=== PATIENT | male | born 1945 | race Caucasian/White ===

== ENCOUNTER 2021-11-18 10:52 | Emergency (ER) | payer MEDICARE ==
[~2021-11-18] VITALS: Ht 182 cm; Wt 81.0 kg
[~2021-11-18 10:52] MED LIST: 2 MEDS FOR BP; ASP81TEC; HYDR-34 PO; NIAC1000; VALA500T4 PO
[2021-11-18 11:37] LABS: BASOPHILS % (AUTO) 0 % (0-10); EOSINOPHILS # (AUTO) 0.3 10^3/uL (0.0-0.3); EOSINOPHILS % (AUTO) 4 % (0-10); HEMATOCRIT 39 % (40-54); HEMOGLOBIN 13.3 g/dL (13.3-17.7); LYMPHOCYTES # (AUTO) 2.2 10^3/uL (1.0-4.0); LYMPHOCYTES % (AUTO) 33 % (12-44); MEAN CORPUSCULAR HEMOGLOBIN 32 pg (25-34); MEAN CORPUSCULAR HGB CONC 34 g/dL (32-36); MEAN CORPUSCULAR VOLUME 94 fL (80-99); MONOCYTES # (AUTO) 0.6 10^3/uL (0.0-1.0); MONOCYTES % (AUTO) 9 % (0-12); NEUTROPHILS # (AUTO) 3.6 10^3/uL (1.8-7.8); NEUTROPHILS % (AUTO) 53 % (42-75); PLATELET COUNT 235 10^3/uL (130-400); WHITE BLOOD COUNT 6.8 10^3/uL (4.3-11.0)
--- NOTE | 2021-11-18 11:38 | ED Neurological Problem ---
General Stated Complaint: BLOATING/NOT TAKING RX/CONFUSION Source: patient, family Exam Limitations: clinical condition History of Present Illness Date Seen by Provider: Nov 18, 2021 Time Seen by Provider: 11:33 Initial Comments Patient is a 76-year-old male who presents ED with brother for change in mental status, bloating not taking current medication. Patient has a history of moderate dementia, hypertension, CHF, chronic kidney disease, prostate cancer, gastritis who presents for change in behavior. Patient recently moved to [place] from [place]. Patient LEO who is his daughter has been taking care of patient for the past 2 years. Recently passing of his resulted of him moving to family here in [place]. He is not established with care here. According to daughter patient has been more confused over the past week. She believes this is secondary to the loss of his and not eating. Patient states he has been eating but tends to bloat but does take medication for this. He has no current abdominal pain, chest pain. Denies of any cough, fever, vomiting, diarrhea. Patient is urine incontinent. Denies of any change in urination. According to his daughter patient had a work-up by his urologist last week and was released. Patient does have a history of seizures currently on Keppra. No seizure-like activity this past week. Patient typically has a seizure when he does not eat or increased stress. She is wanting patient to establish care here. If lab work and general work-up is unremarkable to be discharged and to establish care. Recommends no assisted living at this time. Recommends returning back to family if unremarkable. Patient ambulates with a cane patient denies headache, unilateral muscle weakness or sensory changes, facial droop, Neck pain. Allergies and Home Medications Allergies Coded Allergies: No Known Drug Allergies (Verified , 05/30/08) Patient Home Medication List Home Medication List Reviewed: Yes Aspirin (Aspirin Ec 81 Mg) 81 Mg Tabec, (Reported) Entered as Reported by: VERO PHILIPPE on 02/23/10 0850 Hydrocodone Bit/Acetaminophen (Lortab 7.5 Mg Tablet) 1 Ea Tablet, 1 EA PO Q 4 - 6 HR PRN Prescribed by: BABAK JOHN MD on 02/23/10 0915 Niacin (Niaspan) 1,000 Mg Tablet.sa, (Reported) Entered as Reported by: VERO PHILIPPE on 02/23/10 0850 Valacyclovir Hcl (Valtrex) 500 Mg Tablet, 2 TAB PO TID Prescribed by: BABAK JOHN MD on 02/23/10 0915 [2 Meds For Bp] , (Reported) Entered as Reported by: VERO PHILIPPE on 02/23/10 0850 Review of Systems Review of Systems Constitutional: No chills, No diaphoresis, No fever, No malaise Eyes: Denies Blindness, Denies Blurred Vision, Denies Drainage, Denies Inflammation Gastrointestinal: No RUQ; abdominal pain; No diarrhea, No vomiting Genitourinary: No decreased output, No discharge, No hematuria Musculoskeletal: No back pain, No joint pain Skin: No change in color, No change in hair/nails Psychiatric/Neurological: Cognitive Dysfunction; Denies Headache, Denies Num bness All Other Systems Reviewed Negative Unless Noted: Yes Physical Exam Vital Signs Vital Signs - First Documented 11/18/21 11:05 Temp 36.4 Pulse 60 Resp 20 B/P (MAP) 132/69 (90) Pulse Ox 97 O2 Delivery Room Air Capillary Refill : Height, Weight, BMI Height: '" Weight: lbs. oz. kg; BMI Method: General Appearance: WD/WN, no apparent distress HEENT: PERRL/EOMI, normal ENT inspection, TMs normal, pharynx normal Neck: non-tender, full range of motion, supple Respiratory: chest non-tender, lungs clear, normal breath sounds, no respirat ory distress, no accessory muscle use Cardiovascular: regular rate, rhythm, no edema, no gallop, no JVD Gastrointestinal: normal bowel sounds, non tender, soft, no organomegaly, no pulsatile mass Back: normal inspection Extremities: normal range of motion, non-tender, normal inspection Neurologic/Psychiatric: other (Disoriented x2) Skin: normal color, warm/dry Progress/Results/Core Measures Results/Orders Lab Results Laboratory Tests Test 11/18/21 11:22 11/18/21 12:42 Range/Units White Blood Count 6.8 4.3-11.0 10^3/uL Red Blood Count 4.17 L 4.30-5.52 10^6/uL Hemoglobin 13.3 13.3-17.7 g/dL Hematocrit 39 L 40-54 % Mean Corpuscular Volume 94 80-99 fL Mean Corpuscular Hemoglobin 32 25-34 pg Mean Corpuscular Hemoglobin Concent 34 32-36 g/dL Red Cell Distribution Width 14.2 10.0-14.5 % Platelet Count 235 130-400 10^3/uL Mean Platelet Volume 11.0 9.0-12.2 fL Immature Granulocyte % (Auto) 0 % Neutrophils (%) (Auto) 53 42-75 % Lymphocytes (%) (Auto) 33 12-44 % Monocytes (%) (Auto) 9 0-12 % Eosinophils (%) (Auto) 4 0-10 % Basophils (%) (Auto) 0 0-10 % Neutrophils # (Auto) 3.6 1.8-7.8 10^3/uL Lymphocytes # (Auto) 2.2 1.0-4.0 10^3/uL Monocytes # (Auto) 0.6 0.0-1.0 10^3/uL Eosinophils # (Auto) 0.3 0.0-0.3 10^3/uL Basophils # (Auto) 0.0 0.0-0.1 10^3/uL Immature Granulocyte # (Auto) 0.0 0.0-0.1 10^3/uL Sodium Level 139 135-145 MMOL/L Potassium Level 3.7 3.6-5.0 MMOL/L Chloride Level 106 98-107 MMOL/L Carbon Dioxide Level 23 21-32 MMOL/L Anion Gap 10 5-14 MMOL/L Blood Urea Nitrogen 19 H 7-18 MG/DL Creatinine 1.11 0.60-1.30 MG/DL Estimat Glomerular Filtration Rate 68 BUN/Creatinine Ratio 17 Glucose Level 106 H 70-105 MG/DL Calcium Level 9.6 8.5-10.1 MG/DL Corrected Calcium 9.4 8.5-10.1 MG/DL Magnesium Level 2.0 1.6-2.4 MG/DL Total Bilirubin 1.2 H 0.1-1.0 MG/DL Aspartate Amino Transf (AST/SGOT) 18 5-34 U/L Alanine Aminotransferase (ALT/SGPT) 11 0-55 U/L Alkaline Phosphatase 84 40-136 U/L C-Reactive Protein High Sensitivity 0.17 0.00-0.50 MG/DL Total Protein 7.3 6.4-8.2 GM/DL Albumin 4.3 3.2-4.5 GM/DL Lipase 28 8-78 U/L Urine Color YELLOW Urine Clarity CLEAR Urine pH 7.0 5-9 Urine Specific [place] 1.010 L 1.016-1.022 Urine Protein NEGATIVE NEGATIVE Urine Glucose (UA) NEGATIVE NEGATIVE Urine Ketones NEGATIVE NEGATIVE Urine Nitrite NEGATIVE NEGATIVE Urine Bilirubin NEGATIVE NEGATIVE Urine Urobilinogen 4.0 < = 1.0 MG/DL Urine Leukocyte Esterase NEGATIVE NEGATIVE Urine RBC (Auto) NEGATIVE NEGATIVE Urine RBC NONE /HPF Urine WBC RARE /HPF Urine Squamous Epithelial Cells RARE /HPF Urine Crystals NONE /LPF Urine Bacteria NEGATIVE /HPF Urine Casts NONE /LPF Urine Mucus NEGATIVE /LPF Urine Culture Indicated NO My Orders Orders - NATE KATZ Cbc With Automated Diff (11/18/21 11:30) Comprehensive Metabolic Panel (11/18/21 11:30) Lipase (11/18/21 11:30) Magnesium (11/18/21 11:30) Ekg Tracing (11/18/21 11:30) Chest Pa/Lat (2 View) (11/18/21 11:30) Ua Culture If Indicated (11/18/21 11:30) Ct Head Wo (11/18/21 11:30) Hs C Reactive Protein (11/18/21 11:30) Vital Signs/I&O 11/18/21 11/18/21 11:05 13:20 Temp 36.4 36.4 Pulse 60 58 Resp 20 18 B/P (MAP) 132/69 (90) 136/75 Pulse Ox 97 97 O2 Delivery Room Air Room Air Departure Communication (Admissions) Patient with a history of dementia, chronic kidney disease, CHF, hypertension, prostate cancer who presents ED with brother for multiple complaints. Patient recently moved to [place] to live with brother. Patient lived in [place] until the past week. Patient 1 week ago. Since the he has had increased confusion. Contacted ALLEGRA Kong [phone] who manage patient care for the past 2 years. Patient had a full work-up last week that was unremarkable. She denies of any current complaints or worsening behaviors or conditions. Patient mention that his 's sister is stealing from him. According to sister this is not true and likely referring to her. Patient is alert and oriented x2. Does appear mild confused however this is at his normal baseline likely some subtle changes likely from the increased stress and recent move according to daughter. DPALLEGRA does not want inpatient care at this time. Needs to establish with a primary care physician in the [place] area. This was provided at discharge. Brother currently being managed by a primary care physician at [facility] who he will follow up with. Patient lab work was otherwise unremarkable. Urinalysis negative for infection. CT scan head unremarkable. Lab work was otherwise unremarkable. Patient with a steady gait but does use a cane. No increased irritability. Patient is cooperative. Discussed results with dilia Kong daughter who agrees with this plan of action. They will establish care. If any acute changes to return back to ED. Brother at bedside agrees with this plan of action. Impression Primary Impression: Dementia Disposition: 01 HOME, SELF-CARE Condition: Stable Departure-Patient Inst. Decision time for Depature: 13:09 Referrals: RAYMOND ARMIJO MD NO,LOCAL PHYSICIAN (PCP) Primary Care Physician Patient Instructions: Dementia ED NATE KATZ Nov 18, 2021 11:38
[2021-11-18 11:42] LABS: ALBUMIN 4.3 GM/DL (3.2-4.5); POTASSIUM 3.7 MMOL/L (3.6-5.0)
[2021-11-18 11:43] LABS: CALCIUM 9.6 MG/DL (8.5-10.1)
[2021-11-18 11:44] LABS: TOTAL PROTEIN 7.3 GM/DL (6.4-8.2)
[2021-11-18 11:46] LABS: BILIRUBIN,TOTAL 1.2 MG/DL (0.1-1.0)
[2021-11-18 11:48] LABS: CREATININE SERUM 1.11 MG/DL (0.60-1.30)
--- NOTE | 2021-11-18 12:11 | Diagnostic Imaging Report ---
INDICATION: Altered mental status. TECHNIQUE: Multiple contiguous axial images were obtained through the brain without the use of intravenous contrast. Auto Exposure Controls were utilized during the CT exam to meet ALARA standards for radiation dose reduction. COMPARISON: There is no prior study for comparison. FINDINGS: There are diffuse atrophic changes. There were no extra-axial fluid collections. No intracranial hemorrhage. No intracranial mass or mass effect. No midline shift. There are moderate chronic ischemic changes in the deep white matter. There is mild ventricular prominence which is likely secondary to volume loss. There is no acute-appearing intracranial finding. Calvarial windows are unremarkable. Visualized portions of the sinuses and mastoid air cells are clear. IMPRESSION: Chronic changes as described above with no acute intracranial abnormality. Dictated by: Dictated on workstation # [id number]
--- NOTE | 2021-11-18 12:15 | Diagnostic Imaging Report ---
CHEST PA/LAT (2 VIEW) Indication: Cough Comparison: None available Findings: No pulmonary mass or consolidation. No pleural effusion or pneumothorax. Normal heart size and mediastinal contours. Impression: No acute cardiopulmonary process. Dictated by: Dictated on workstation # [id number]
[2021-11-18 12:50] LABS: BILIRUBIN,URINE NEGATIVE (NEGATIVE); CLARITY,URINE CLEAR; COLOR,URINE YELLOW; GLUCOSE, URINE (UA) NEGATIVE (NEGATIVE); KETONES,URINE NEGATIVE (NEGATIVE); LEUKOCYTE ESTERASE ,URINE NEGATIVE (NEGATIVE); NITRITE,URINE NEGATIVE (NEGATIVE); PROTEIN,URINE NEGATIVE (NEGATIVE)
[2021-11-18 12:57] LABS: BACTERIA,URINE NEGATIVE /HPF; SQUAMOUS EPITHELIAL CELL,UR RARE /HPF; WBC,URINE RARE /HPF
[2021-11-18 13:20] VITALS: BP 136/75
== END 2021-11-18 13:30 | disposition home or self-care (01) ==
LOC: EDUNIT# 10:52 → ER 10:54
DX: F03.90 Unspecified dementia, unspecified severity, without behavioral disturbance, psychotic disturbance, mood disturbance, and anxiety (principal); Z79.82 Long term (current) use of aspirin
CPT/HCPCS: 36415; 70450; 71046; 80053; 81000; 83690; 83735; 85025; 86141; 93005

== ENCOUNTER 2022-01-28 10:54 | Emergency (ER) | payer MEDICARE | END 2022-01-28 12:03 | disposition left against medical advice (07) | LOC: EDUNIT# 10:54 → ER 10:55 | DX: R44.3 Hallucinations, unspecified (principal) ==

== ENCOUNTER → 2022-03-18 | Outpatient (CLI) | payer MEDICARE | LOC: CARD 14:30 | PROVIDERS: ATTEND Pediatrics | DX: I11.9 Hypertensive heart disease without heart failure (principal); I35.1 Nonrheumatic aortic (valve) insufficiency | CPT/HCPCS: 93306 ==

== ENCOUNTER → 2022-04-11 | Outpatient (CLI) | payer MEDICARE ==
[~2022-04-11] MED LIST changes: +HOLD METFORMIN - RECEIVED CONTRAST 20 ML VIAL IV SCH; +IOHEXOL 350 MG/ML 100 ML (OMNIPAQUE 350) VIAL IV ONE; +NS 100 ML (IVPB) BAG IV ONE
--- NOTE | 2022-04-11 14:12 | Diagnostic Imaging Report ---
PROCEDURE: CT abdomen with and without contrast. TECHNIQUE: Multiple contiguous axial CT images of the abdomen were obtained prior to and after intravenous administration of iodinated contrast. Auto Exposure Controls were utilized during the CT exam to meet ALARA standards for radiation dose reduction. INDICATION: Cancer of unknown type. Patient has had prior hernia surgery and urethra surgery. No prior studies are available for comparison. Imaging through lung bases does show some linear scarring or atelectasis in the right lower lobe. The liver contains tiny low-attenuation lesions, too small to characterize but likely cysts. Gallbladder is contracted. There is no biliary ductal dilatation. Pancreas and spleen are unremarkable. No adrenal mass is detected. The right kidney contains a low-attenuation lesion in the lower pole measuring 6.0 cm transverse dimension. No abnormal enhancement is identified and findings are consistent with a cyst. Left kidney is unremarkable. Aorta is calcified but nonaneurysmal. No central retroperitoneal or mesenteric lymphadenopathy is seen. Bowel loops are normal caliber. There is no ascites. Bony structures are nonacute. IMPRESSION: 6 cm right renal cyst. The study is otherwise unremarkable. Dictated by: Dictated on workstation # [id number]
== END ==
LOC: RAD 10:17
PROVIDERS: ATTEND Specialist
DX: N28.1 Cyst of kidney, acquired (principal); D41.01 Neoplasm of uncertain behavior of right kidney; R97.20 Elevated prostate specific antigen [PSA]
CPT/HCPCS: 36415; 74170; 82565; 84153

== ENCOUNTER → 2022-05-27 | Outpatient (CLI) | payer MEDICARE ==
[~2022-05-27] MED LIST changes: -HOLD METFORMIN - RECEIVED CONTRAST 20 ML VIAL IV SCH; -IOHEXOL 350 MG/ML 100 ML (OMNIPAQUE 350) VIAL IV ONE; -NS 100 ML (IVPB) BAG IV ONE
== END ==
LOC: LAB 15:29
PROVIDERS: ATTEND Specialist
DX: R97.20 Elevated prostate specific antigen [PSA] (principal)
CPT/HCPCS: 36415; 84153

== ENCOUNTER 2022-07-29 12:01 | Emergency (ER) | payer MEDICARE ==
[~2022-07-29] VITALS: Ht 177.8 cm; Wt 65.8 kg
[2022-07-29] MEDS ORDERED: WATER (STERILE) FOR INJECTION 10 ML ONE (12:07)
[2022-07-29] MEDS ORDERED: ZIPRASIDONE 20 MG INJ (GEODON) VIAL IM ONE ×2 (12:07→12:15)
[2022-07-29] MEDS ORDERED: WATER (STERILE) FOR INJ 10 ML BTL INJ SCH (12:15)
--- NOTE | 2022-07-29 12:20 | ED General ---
General Chief Complaint: Altered Mental Status Stated Complaint: ALTERED MENTAL STATUS Nursing Triage Note: PT TO ED BY EMS FROM [facility] WITH C/O INCRASED AGGRESSION. EMS REPORTS HAS BEEN VIOLENT TOWARDS STAFF THIS MORNING, HITTING AND THROWING THINGS. STAFF REPORTS PT IS SEXUALLY INNAPROPRIATE, BUT HAS NOT BEEN VIOLENT TOWARDS THEM UNTIL TODAY. Source of Information: Patient, EMS, [facility] Records Exam Limitations: No Limitations History of Present Illness Date Seen by Provider: Jul 29, 2022 Time Seen by Provider: 12:02 Initial Comments 77-year-old male with past medical history of dementia that is being taken care of at a [facility] coming in due to violent behavior and otherwise being inappropriate. He has not been violent until today, but typically is very verbal. He is sexually inappropriate almost at baseline. This morning he started hitting the staff and throwing things towards them. No fever, pain anywhere, and he is otherwise denying any symptoms at this time. Allergies and Home Medications Allergies Coded Allergies: No Known Drug Allergies (Verified , 05/30/08) Patient Home Medication List Home Medication List Reviewed: Yes Aspirin (Aspirin Ec 81 Mg) 81 Mg Tabec, (Reported) Entered as Reported by: VERO PHILIPPE on 02/23/10849 Hydrocodone Bit/Acetaminophen (Lortab 7.5 Mg Tablet) 1 Ea Tablet, 1 EA PO Q 4 - 6 HR PRN Prescribed by: BABAK JOHN MD on 02/23/10914 Niacin (Niaspan) 1,000 Mg Tablet.sa, (Reported) Entered as Reported by: VERO PHILIPPE on 02/23/10849 Valacyclovir Hcl (Valtrex) 500 Mg Tablet, 2 TAB PO TID Prescribed by: BABAK JOHN MD on 02/23/10914 [2 Meds For Bp] , (Reported) Entered as Reported by: VERO PHILIPPE on 02/23/10849 Review of Systems Review of Systems Constitutional: No fever EENTM: no symptoms reported Respiratory: no symptoms reported Cardiovascular: no symptoms reported Gastrointestinal: no symptoms reported Genitourinary: no symptoms reported Musculoskeletal: no symptoms reported Skin: no symptoms reported Psychiatric/Neurological: See HPI Hematologic/Lymphatic: No Symptoms Reported Immunological/Allergic: no symptoms reported All Other Systems Reviewed Negative Unless Noted: Yes Past Ghbreoo-Jgdnie-Kmdusj Hx Patient Social History Substance use?: No Immunizations Up To Date First/Initial COVID19 Vaccinat: 12/16 Second COVID19 Vaccination Rodney: 01/16 Past Medical History Surgery/Hospitalization HX: HTN, CHF, CKD, DEMENTIA, PROSTATE CA, AAA Surgeries: Yes Physical Exam Vital Signs Capillary Refill : Height, Weight, BMI Height: '" Weight: lbs. oz. kg; 20.00 BMI Method: General Appearance: No Apparent Distress, WD/WN Eyes: Bilateral Eye Normal Inspection HEENT: PERRL/EOMI, Normal ENT Inspection, Pharynx Normal Neck: Full Range of Motion, Normal Inspection, Non Tender, Supple Respiratory: Chest Non Tender, Lungs Clear, Normal Breath Sounds, No Accessory Muscle Use, No Respiratory Distress Cardiovascular: Regular Rate, Rhythm, No Edema, Normal Peripheral Pulses Gastrointestinal: Normal Bowel Sounds, Non Tender, Soft; No Distended, No Guarding Back: Normal Inspection, No CVA Tenderness Extremity: Normal Capillary Refill, Normal Inspection, Normal Range of Motion, Non Tender, No Calf Tenderness, No Pedal Edema Neurologic/Psychiatric: Alert, No Motor/Sensory Deficits, Normal Mood/Affect, Other (Very loud, aggressive verbally) Skin: Normal Color, Warm/Dry Lymphatic: No Adenopathy Progress/Results/Core Measures Suspected Sepsis SIRS Temperature: Pulse: Respiratory Rate: Laboratory Tests 07/29/22 13:25: White Blood Count 6.0 Blood Pressure / Mean: Laboratory Tests 07/29/22 13:25: Creatinine 1.24, Platelet Count 320, Total Bilirubin 0.5 Results/Orders Lab Results Laboratory Tests Test 07/29/22 13:25 07/29/22 13:38 Range/Units White Blood Count 6.0 4.3-11.0 10^3/uL Red Blood Count 3.95 L 4.30-5.52 10^6/uL Hemoglobin 12.1 L 13.3-17.7 g/dL Hematocrit 37 L 40-54 % Mean Corpuscular Volume 93 80-99 fL Mean Corpuscular Hemoglobin 31 25-34 pg Mean Corpuscular Hemoglobin Concent 33 32-36 g/dL Red Cell Distribution Width 14.6 H 10.0-14.5 % Platelet Count 320 130-400 10^3/uL Mean Platelet Volume 10.8 9.0-12.2 fL Immature Granulocyte % (Auto) 0 % Neutrophils (%) (Auto) 53 42-75 % Lymphocytes (%) (Auto) 30 12-44 % Monocytes (%) (Auto) 10 0-12 % Eosinophils (%) (Auto) 5 0-10 % Basophils (%) (Auto) 1 0-10 % Neutrophils # (Auto) 3.2 1.8-7.8 10^3/uL Lymphocytes # (Auto) 1.8 1.0-4.0 10^3/uL Monocytes # (Auto) 0.6 0.0-1.0 10^3/uL Eosinophils # (Auto) 0.3 0.0-0.3 10^3/uL Basophils # (Auto) 0.0 0.0-0.1 10^3/uL Immature Granulocyte # (Auto) 0.0 0.0-0.1 10^3/uL Sodium Level 140 135-145 MMOL/L Potassium Level 4.1 3.6-5.0 MMOL/L Chloride Level 106 98-107 MMOL/L Carbon Dioxide Level 23 21-32 MMOL/L Anion Gap 11 5-14 MMOL/L Blood Urea Nitrogen 25 H 7-18 MG/DL Creatinine 1.24 0.60-1.30 MG/DL Estimat Glomerular Filtration Rate 59 BUN/Creatinine Ratio 20 Glucose Level 104 70-105 MG/DL Calcium Level 8.9 8.5-10.1 MG/DL Corrected Calcium 9.1 8.5-10.1 MG/DL Total Bilirubin 0.5 0.1-1.0 MG/DL Aspartate Amino Transf (AST/SGOT) 17 5-34 U/L Alanine Aminotransferase (ALT/SGPT) 8 0-55 U/L Alkaline Phosphatase 73 40-136 U/L Total Protein 6.6 6.4-8.2 GM/DL Albumin 3.7 3.2-4.5 GM/DL Urine Color YELLOW Urine Clarity CLEAR Urine pH 5.5 5-9 Urine Specific [place] >=1.030 1.016-1.022 Urine Protein NEGATIVE NEGATIVE Urine Glucose (UA) NEGATIVE NEGATIVE Urine Ketones TRACE H NEGATIVE Urine Nitrite NEGATIVE NEGATIVE Urine Bilirubin NEGATIVE NEGATIVE Urine Urobilinogen 1.0 < = 1.0 MG/DL Urine Leukocyte Esterase NEGATIVE NEGATIVE Urine RBC (Auto) NEGATIVE NEGATIVE Urine RBC NONE /HPF Urine WBC NONE /HPF Urine Squamous Epithelial Cells NONE /HPF Urine Crystals NONE /LPF Urine Bacteria NEGATIVE /HPF Urine Casts NONE /LPF Urine Mucus SMALL H /LPF Urine Culture Indicated NO Urine Opiates Screen NEGATIVE NEGATIVE Urine Oxycodone Screen NEGATIVE NEGATIVE Urine Methadone Screen NEGATIVE NEGATIVE Urine Propoxyphene Screen NEGATIVE NEGATIVE Urine Barbiturates Screen NEGATIVE NEGATIVE Ur Tricyclic Antidepressants Screen NEGATIVE NEGATIVE Urine Phencyclidine Screen NEGATIVE NEGATIVE Urine Amphetamines Screen NEGATIVE NEGATIVE Urine Methamphetamines Screen NEGATIVE NEGATIVE Urine Benzodiazepines Screen NEGATIVE NEGATIVE Urine Cocaine Screen NEGATIVE NEGATIVE Urine Cannabinoids Screen NEGATIVE NEGATIVE My Orders Orders - NATE FAIRCHILD MD Ziprasidone Injection (Geodon Injection) (07/29/22 12:15) Water (Sterile) For Injection (Sterile W (07/29/22 12:15) Cbc With Automated Diff (07/29/22 12:07) Comprehensive Metabolic Panel (07/29/22 12:07) Drug Screen Stat (Urine) (07/29/22 12:07) Ua Culture If Indicated (07/29/22 12:07) Ziprasidone Injection (Geodon Injection) (07/29/22 12:07) Water (Sterile) For Injection (Sterile W (07/29/22 12:07) Medications Given in ED Current Medications Medications Dose Ordered Sig/Ramos Route Start Time Stop Time Status Last Admin Dose Admin Ziprasidone 20 mg ONCE ONCE IM 07/29/22 12:15 07/29/22 12:16 DC 07/29/22 12:15 20 MG Vital Signs/I&O Capillary Refill : Progress Note : Progress Note 77-year-old male with dementia coming in due to agitation. ABCs were intact and vitals were stable on presentation. Physical exam reassuring including a nonfocal neuro exam. The patient was agitated here, requiring IM Geodon, and the police were here as well for assistance initially. This calmed the patient down appropriately. Basic labs were obtained and were essentially unremarkable. Urinalysis with no signs of infection. I suspect this is behavior related with his dementia. His [facility] is actively working on getting him to a [facility] for further evaluation. I called and discussed the case with the patient's nurse at the fci. The reason they needed to call was because he did not have any as needed's for agitation. I will personally write some as needed medications until he can have follow-up with his primary provider. Departure Impression Primary Impression: Dementia with behavioral disturbance Additional Impression: Agitation Disposition: 01 HOME, SELF-CARE Condition: Improved Departure-Patient Inst. Decision time for Depature: 14:25 Referrals: NO,LOCAL PHYSICIAN (PCP/Family) Primary Care Physician Patient Instructions: Dementia (DC) Add. Discharge Instructions: We believe the behavioral disturbance and agitation is likely related to his dementia. He does not show any signs of infection and his labs are otherwise unremarkable. He is not showing any signs of any type of stroke as well. He received 1 injection of IM Geodon which calmed him down. We do recommend [facility] evaluation not emergently. NATE FAIRCHILD MD Jul 29, 2022 12:20
[2022-07-29 13:38] LABS: BASOPHILS % (AUTO) 1 % (0-10); EOSINOPHILS # (AUTO) 0.3 10^3/uL (0.0-0.3); EOSINOPHILS % (AUTO) 5 % (0-10); HEMATOCRIT 37 % (40-54); HEMOGLOBIN 12.1 g/dL (13.3-17.7); LYMPHOCYTES # (AUTO) 1.8 10^3/uL (1.0-4.0); LYMPHOCYTES % (AUTO) 30 % (12-44); MEAN CORPUSCULAR HEMOGLOBIN 31 pg (25-34); MEAN CORPUSCULAR HGB CONC 33 g/dL (32-36); MEAN CORPUSCULAR VOLUME 93 fL (80-99); MEAN PLATELET VOLUME 10.8 fL (9.0-12.2); MONOCYTES # (AUTO) 0.6 10^3/uL (0.0-1.0); MONOCYTES % (AUTO) 10 % (0-12); NEUTROPHILS # (AUTO) 3.2 10^3/uL (1.8-7.8); NEUTROPHILS % (AUTO) 53 % (42-75); PLATELET COUNT 320 10^3/uL (130-400)
[2022-07-29 13:45] LABS: BILIRUBIN,URINE NEGATIVE (NEGATIVE); CLARITY,URINE CLEAR; COLOR,URINE YELLOW; GLUCOSE, URINE (UA) NEGATIVE (NEGATIVE); KETONES,URINE TRACE (NEGATIVE); LEUKOCYTE ESTERASE ,URINE NEGATIVE (NEGATIVE); NITRITE,URINE NEGATIVE (NEGATIVE); PH,URINE 5.5 (5-9); PROTEIN,URINE NEGATIVE (NEGATIVE)
[2022-07-29 13:47] LABS: ALBUMIN 3.7 GM/DL (3.2-4.5); POTASSIUM 4.1 MMOL/L (3.6-5.0)
[2022-07-29 13:48] LABS: CALCIUM 8.9 MG/DL (8.5-10.1)
[2022-07-29 13:49] LABS: TOTAL PROTEIN 6.6 GM/DL (6.4-8.2)
[2022-07-29 13:51] LABS: BACTERIA,URINE NEGATIVE /HPF
[2022-07-29 13:51] LABS: BILIRUBIN,TOTAL 0.5 MG/DL (0.1-1.0)
[2022-07-29 13:53] LABS: CREATININE SERUM 1.24 MG/DL (0.60-1.30)
[2022-07-29 14:02] LABS: AMPHETAMINE SCREEN, URINE NEGATIVE (NEGATIVE); BARBITURATE SCREEN URINE NEGATIVE (NEGATIVE); BENZODIAZEPINES SCREEN URINE NEGATIVE (NEGATIVE); CANNABINOID SCREEN, URINE NEGATIVE (NEGATIVE); COCAINE SCREEN URINE NEGATIVE (NEGATIVE); METHADONE STAT NEGATIVE (NEGATIVE); OPIATE SCREEN URINE NEGATIVE (NEGATIVE); OXYCODONE STAT NEGATIVE (NEGATIVE); PROPOXYPHENE STAT NEGATIVE (NEGATIVE); TRICYCLIC ANTIDEPRESSANTS SCRE NEGATIVE (NEGATIVE)
[2022-07-29 14:48] VITALS: BP 134/72
== END 2022-07-29 14:48 | disposition home or self-care (01) ==
LOC: EDUNIT# 12:01 → ER 12:03
DX: F03.911 Unspecified dementia, unspecified severity, with agitation (principal)
CPT/HCPCS: 36415; 51701; 80053; 80306; 81000; 85025

== ENCOUNTER 2022-11-09 15:36 | Observation (INO) | payer MEDICARE ==
[~2022-11-09] VITALS: Ht 175 cm; Wt 72.0 kg
--- NOTE | 2022-11-09 15:59 | ED Fall/Injury ---
General Chief Complaint: Neurological Problems Stated Complaint: FALL Source: EMS, senior care records Exam Limitations: clinical condition History of Present Illness Date Seen by Provider: Nov 09, 2022 Time Seen by Provider: 15:48 Initial Comments Patient is a 77yo male, from a local senior care. HIstory of Dementia, chronic anticoagulation, heart failure, seizures. Patient arrives with stable VS, c collar in place. Responds to deep pain with a yell - pressure on his nail bed; otherwise will not follow commands to squeeze hand nor will he open his eyes. Patient reportedly ambulated to lunch (noon) and then back to room. Was not found until about 3 hours later in this state. Noted small abrasion/contusion high left denominational area, small abrasion left lateral elbow. Appears to have traumatic avulsion of left upper incisor (overall very poor dentition). Occurred: other (unsure) Severity: severe Injuries/Pain Location: head, face Context: unknown Loss of Consciousness: unsure Allergies and Home Medications Allergies Coded Allergies: No Known Drug Allergies (Verified , 05/30/08) Patient Home Medication List Home Medication List Reviewed: Yes Aspirin (Aspirin Ec 81 Mg) 81 Mg Tabec, (Reported) Entered as Reported by: VERO PHILIPPE on 02/23/1050 Hydrocodone Bit/Acetaminophen (Lortab 7.5 Mg Tablet) 1 Ea Tablet, 1 EA PO Q 4 - 6 HR PRN Prescribed by: BABAK JOHN MD on 02/23/10914 Niacin (Niaspan) 1,000 Mg Tablet.sa, (Reported) Entered as Reported by: VERO PHILIPPE on 02/23/1050 Valacyclovir Hcl (Valtrex) 500 Mg Tablet, 2 TAB PO TID Prescribed by: BABAK JOHN MD on 02/23/10914 [2 Meds For Bp] , (Reported) Entered as Reported by: VERO PHILIPPE on 02/23/10849 Review of Systems Review of Systems Constitutional: see HPI unable to obtain secondary to patient's AMS Past Orkabpr-Wiufpm-Pexjma Hx Immunizations Up To Date First/Initial COVID19 Vaccinat: 12/16 Second COVID19 Vaccination Rodney: 01/16 Past Medical History Surgery/Hospitalization HX: HTN, CHF, CKD, DEMENTIA, PROSTATE CA, AAA Surgeries: Yes Physical Exam Vital Signs Vital Signs - First Documented 11/09/22 16:11 Temp 37.2 Pulse 66 Resp 18 B/P (MAP) 116/68 (84) Pulse Ox 94 O2 Delivery Room Air Capillary Refill : Height, Weight, BMI Height: '" Weight: lbs. oz. kg; 20.00 BMI Method: General Appearance: thin HEENT: other (pupils pinpoint bilat; traumatic avulsion of left upper incisor; no obvious tongue biting injury) Neck: other (cervical collar in place) Cardiovascular: regular rate, rhythm, other (2+ bilat radial pulses) Respiratory: chest non-tender, lungs clear, normal breath sounds, no respiratory distress, no accessory muscle use Peripheral Pulses: 2+ Radial Pulses (R), 2+ Radial Pulses (L) Gastrointestinal: normal bowel sounds, soft; No distended Extremities: non-tender, pelvis stable Neurologic/Psychiatric: other (poor responsiveness - responds to painful stim w/ a yell) Skin: warm/dry, other (abrasion left elbow; small contusion left high denominational) Linda Coma Score Best Eye Response: (2) Open to Pain Best Verbal Response: (2) Incomprehsible Sounds Best Motor Response: (4) Withdraws to Pain [place] Total: 8 Progress/Results/Core Measures Results/Orders Lab Results Laboratory Tests Test 11/09/22 15:40 Range/Units White Blood Count 9.5 4.3-11.0 10^3/uL Red Blood Count 4.58 4.30-5.52 10^6/uL Hemoglobin 14.5 13.3-17.7 g/dL Hematocrit 43 40-54 % Mean Corpuscular Volume 94 80-99 fL Mean Corpuscular Hemoglobin 32 25-34 pg Mean Corpuscular Hemoglobin Concent 34 32-36 g/dL Red Cell Distribution Width 15.4 H 10.0-14.5 % Platelet Count 269 130-400 10^3/uL Mean Platelet Volume 10.8 9.0-12.2 fL Immature Granulocyte % (Auto) 2 % Neutrophils (%) (Auto) 65 42-75 % Lymphocytes (%) (Auto) 20 12-44 % Monocytes (%) (Auto) 9 0-12 % Eosinophils (%) (Auto) 4 0-10 % Basophils (%) (Auto) 0 0-10 % Neutrophils # (Auto) 6.2 1.8-7.8 10^3/uL Lymphocytes # (Auto) 1.9 1.0-4.0 10^3/uL Monocytes # (Auto) 0.9 0.0-1.0 10^3/uL Eosinophils # (Auto) 0.4 H 0.0-0.3 10^3/uL Basophils # (Auto) 0.0 0.0-0.1 10^3/uL Immature Granulocyte # (Auto) 0.2 H 0.0-0.1 10^3/uL Prothrombin Time 15.4 H 12.2-14.7 SEC INR Comment 1.2 0.8-1.4 Activated Partial Thromboplast Time 37 H 24-35 SEC Sodium Level 140 135-145 MMOL/L Potassium Level 4.0 3.6-5.0 MMOL/L Chloride Level 104 98-107 MMOL/L Carbon Dioxide Level 23 21-32 MMOL/L Anion Gap 13 5-14 MMOL/L Blood Urea Nitrogen 22 H 7-18 MG/DL Creatinine 1.21 0.60-1.30 MG/DL Estimat Glomerular Filtration Rate 61 BUN/Creatinine Ratio 18 Glucose Level 98 70-105 MG/DL Calcium Level 9.1 8.5-10.1 MG/DL My Orders Orders - REGINE GARCIA MD Chest 1 View, Ap/Pa Only (11/09/22 15:53) Ed Iv/Invasive Line Start (11/09/22 15:53) Cbc With Automated Diff (11/09/22 15:53) Protime With Inr (11/09/22 15:53) Partial Thromboplastin Time (11/09/22 15:53) Ekg Tracing (11/09/22 15:53) Basic Metabolic Panel (11/09/22 15:53) Ct Head/Cervical Spine Wo (11/09/22 15:53) Vital Signs/I&O 11/09/22 16:11 Temp 37.2 Pulse 66 Resp 18 B/P (MAP) 116/68 (84) Pulse Ox 94 O2 Delivery Room Air Initial ECG Impression Date: Nov 09, 2022 Initial ECG Impression Time: 16:11 Initial ECG Rate: 64 Initial ECG Rhythm: Normal Sinus Initial ECG Intervals IA 206 QRS 88 QTc 405 Departure Communication (Admissions) Time/Spoke to Admitting Phy: 16:[address] Pierce Impression Primary Impression: Altered mental status Qualified Codes: R41.82 - Altered mental status, unspecified Additional Impression: History of seizure disorder Disposition: ADMITTED INPATIENT Condition: Stable Admissions Decision to Admit Reason: Admit from ER (General) Decision to Admit/Date: Nov 09, 2022 Time/Decision to Admit Time: 16:45 Departure-Patient Inst. Referrals: NO,LOCAL PHYSICIAN (PCP/Family) Primary Care Physician REGINE GARCIA MD Nov 09, 2022 15:59
[2022-11-09 16:03] LABS: BASOPHILS % (AUTO) 0 % (0-10); EOSINOPHILS # (AUTO) 0.4 10^3/uL (0.0-0.3); EOSINOPHILS % (AUTO) 4 % (0-10); HEMATOCRIT 43 % (40-54); HEMOGLOBIN 14.5 g/dL (13.3-17.7); LYMPHOCYTES # (AUTO) 1.9 10^3/uL (1.0-4.0); LYMPHOCYTES % (AUTO) 20 % (12-44); MEAN CORPUSCULAR HEMOGLOBIN 32 pg (25-34); MEAN CORPUSCULAR HGB CONC 34 g/dL (32-36); MEAN CORPUSCULAR VOLUME 94 fL (80-99); MEAN PLATELET VOLUME 10.8 fL (9.0-12.2); MONOCYTES # (AUTO) 0.9 10^3/uL (0.0-1.0); MONOCYTES % (AUTO) 9 % (0-12); NEUTROPHILS # (AUTO) 6.2 10^3/uL (1.8-7.8); NEUTROPHILS % (AUTO) 65 % (42-75); PLATELET COUNT 269 10^3/uL (130-400); WHITE BLOOD COUNT 9.5 10^3/uL (4.3-11.0)
[2022-11-09 16:05] LABS: CALCIUM 9.1 MG/DL (8.5-10.1)
[2022-11-09 16:08] LABS: INR 1.2 (0.8-1.4); PROTHROMBIN TIME PATIENT 15.4 SEC (12.2-14.7)
[2022-11-09 16:09] LABS: CREATININE SERUM 1.21 MG/DL (0.60-1.30)
--- NOTE | 2022-11-09 16:15 | Diagnostic Imaging Report ---
PROCEDURE: CT head and CT cervical spine without contrast. TECHNIQUE: Multiple contiguous axial images were obtained through the brain and cervical spine without the use of intravenous contrast. Sagittal and coronal reformations through the cervical spine were then performed. Auto Exposure Controls were utilized during the CT exam to meet ALARA standards for radiation dose reduction. INDICATION: Fall. Altered mental status. Head and neck pain. On blood thinners. COMPARISON: 11/18/2021. FINDINGS: CT HEAD: No large acute territorial ischemia, mass or hemorrhage. No midline shift or mass effect. Decreased attenuation is seen in the periventricular and subcortical white matter. The ventricles and cortical sulci are prominent. The basilar cisterns are patent and unremarkable. The calvarium is intact. The visualized paranasal sinuses are clear. CT CERVICAL SPINE: No acute fracture or dislocation is seen in the cervical spine. No focal osseous lesion. Vertebral body heights are well maintained. The craniocervical junction is well maintained. Moderate degenerative changes are seen in the cervical spine with disc osteophyte complexes and uncovertebral arthropathy. Soft tissues of the neck are unremarkable. Included lungs are clear. IMPRESSION: 1. No hemorrhage or focal intra-axial mass. No CT evidence of large acute territorial ischemia. 2. No acute fracture or dislocation in the cervical spine. Dictated by: Dictated on workstation # [id number]
--- NOTE | 2022-11-09 16:22 | Diagnostic Imaging Report ---
EXAMINATION: Chest 1 view. HISTORY: Altered mental status. Fall. Chest pain. COMPARISON: 11/18/2021. FINDINGS: The lung volumes are normal. No focal consolidation is seen. Mildly prominent interstitial markings are seen in the lungs. No large pleural effusion or pneumothorax is seen. The cardiomediastinal silhouette is normal in size and contour. No acute osseous abnormality is seen. IMPRESSION: Mildly prominent interstitial markings in the lungs, which can be seen with edema. No focal consolidation or pleural effusion. Dictated by: Dictated on workstation # [id number]
[2022-11-09 17:30] VITALS: BP 155/68
[2022-11-09] MEDS ORDERED: ACETAMINOPHEN 325 MG TABLET PO PRN (17:45)
[2022-11-09] MEDS ORDERED: diphenhydrAMINE 50 MG/ML INJ (BENADRYL) IVP PRN (17:45)
[2022-11-09] MEDS ORDERED: ONDANSETRON 4 MG/2 ML (SDV) Z0FRAN IV PRN (17:45)
[2022-11-09] MEDS ORDERED: BISACODYL 10 MG SUPP (DULCOLAX) PR PRN (17:45)
[2022-11-09] MEDS ORDERED: CALCIUM CARBONATE 500 MG (TUMS) TAB.CHEW PO PRN (17:45)
[2022-11-09] MEDS ORDERED: LACTULOSE SYRUP 10GM/15ML (ENULOSE) 30ML UDC PO PRN (17:45)
[2022-11-09] MEDS ORDERED: polyethylene glycoL POWDER 17 GM (MIRALAX) PACK PO PRN (17:45)
[2022-11-09] MEDS ORDERED: diphenhydrAMINE 25 MG TAB (BENADRYL) PO PRN (17:45)
[2022-11-09] MEDS ORDERED: HALOPERIDOL 5 MG/ML (HALDOL) VIAL IM PRN (17:45)
[2022-11-09] MEDS ORDERED: ANTACID SUSP 30 ML UDC (MYLANTA) PO PRN (17:45)
[2022-11-09] MEDS ORDERED: ONDANSETRON 4 MG (ZOFRAN) ORAL DISSOLVE TAB PO PRN (17:45)
[2022-11-09] MEDS ORDERED: MELATONIN 3 MG TABLET PO PRN (17:45)
[2022-11-09] MEDS ORDERED: LORazepam INJ 2 MG/ML (ATIVAN) VIAL IVP PRN (17:45)
[2022-11-09] MEDS ORDERED: HYDROmorphone 2 MG/ML VIAL (DILAUDID) IV PRN (17:45)
[2022-11-09] MEDS ORDERED: ENOXAPARIN 40 MG/0.4 ML (LOVENOX) SYR SC SCH (17:45)
[2022-11-09] MEDS ORDERED: MILK OF MAGNESIA 400 MG/5 ML 30 ML UDC PO PRN (17:45)
[2022-11-09] MEDS ORDERED: NS IV 1000 ML 1,000 ML ONE (18:04)
[2022-11-09] MEDS ORDERED: ENOXAPARIN 40 MG/0.4 ML (LOVENOX) SYR ONE (18:05)
[2022-11-09] MEDS: NS IV 1000 ML 1,000 ML IV SCH (18:07)
[2022-11-09] MEDS ORDERED: OLAN2.5T27 PO (18:41)
[2022-11-09] MEDS ORDERED: PANT40TA52 PO (18:41)
[2022-11-09] MEDS ORDERED: ATOR40TA70 PO (18:41)
[2022-11-09] MEDS ORDERED: OLN5T PO (18:41)
[2022-11-09] MEDS ORDERED: AMLO-250 PO (18:41)
[2022-11-09] MEDS ORDERED: GALA12TA PO (18:41)
[2022-11-09] MEDS ORDERED: TMSL.4C PO (18:41)
[2022-11-09] MEDS ORDERED: MEMA10TA57 PO (18:41)
[2022-11-09] MEDS ORDERED: LEVE750T19 PO (18:41)
[2022-11-09] MEDS ORDERED: SERT-413 PO (18:41)
[2022-11-09] MEDS ORDERED: AMLO-251 PO (18:41)
[2022-11-09] MEDS ORDERED: ASPI-808 PO (18:42)
[2022-11-09 19:22] VITALS: BP 138/68
[2022-11-09 19:47] VITALS: BP 116/68
[2022-11-09] MEDS ORDERED: RT-ALBUTEROL SULF 2.5 MG/3 ML PRE-MIX VIAL INH PRN (20:00)
[2022-11-09] MEDS ORDERED: HYDROmorphone 2 MG/ML VIAL (DILAUDID) ONE (20:09)
[2022-11-09] MEDS: DOCUSATE SODIUM 100 MG (COLACE) CAP PO SCH (21:13)
[2022-11-09] MEDS: SENNOSIDES 8.6 MG (SENOKOT) TAB PO SCH (21:13)
[2022-11-10 00:28] VITALS: BP 115/70
[2022-11-10 04:33] VITALS: BP 133/70
[2022-11-10 06:10] LABS: BASOPHILS % (AUTO) 0 % (0-10); EOSINOPHILS # (AUTO) 0.3 10^3/uL (0.0-0.3); EOSINOPHILS % (AUTO) 4 % (0-10); HEMATOCRIT 39 % (40-54); HEMOGLOBIN 12.9 g/dL (13.3-17.7); LYMPHOCYTES # (AUTO) 1.7 10^3/uL (1.0-4.0); LYMPHOCYTES % (AUTO) 23 % (12-44); MEAN CORPUSCULAR HEMOGLOBIN 31 pg (25-34); MEAN CORPUSCULAR HGB CONC 34 g/dL (32-36); MEAN CORPUSCULAR VOLUME 93 fL (80-99); MEAN PLATELET VOLUME 10.9 fL (9.0-12.2); MONOCYTES % (AUTO) 14 % (0-12); NEUTROPHILS # (AUTO) 4.2 10^3/uL (1.8-7.8); NEUTROPHILS % (AUTO) 58 % (42-75); PLATELET COUNT 236 10^3/uL (130-400); WHITE BLOOD COUNT 7.2 10^3/uL (4.3-11.0)
[2022-11-10 06:27] LABS: ALBUMIN 3.4 GM/DL (3.2-4.5)
[2022-11-10 06:28] LABS: POTASSIUM 3.7 MMOL/L (3.6-5.0)
[2022-11-10 06:29] LABS: CALCIUM 8.5 MG/DL (8.5-10.1)
[2022-11-10 06:30] LABS: TOTAL PROTEIN 6.4 GM/DL (6.4-8.2)
[2022-11-10 06:32] LABS: BILIRUBIN,TOTAL 0.8 MG/DL (0.1-1.0)
[2022-11-10 06:34] LABS: CREATININE SERUM 0.97 MG/DL (0.60-1.30)
[2022-11-10 07:56] VITALS: BP 117/60
[2022-11-10] MEDS: SENNOSIDES 8.6 MG (SENOKOT) TAB PO SCH (08:04)
[2022-11-10] MEDS: DOCUSATE SODIUM 100 MG (COLACE) CAP PO SCH (08:04)
[2022-11-10] MEDS: NS IV 1000 ML 1,000 ML IV SCH (08:20)
--- NOTE | 2022-11-10 11:18 | Physical Therapy Progress Note ---
Therapy Progress Note Patient in bed and refused PT. PT attempted to encourage patient for OOB activity, however, patient continued to refuse. RN and physician notified. 1 ref MAINE ERICKSON PT Nov 10, 2022 11:18
[2022-11-10 11:28] VITALS: BP 106/60
--- NOTE | 2022-11-10 11:46 | Discharge Summary ---
Diagnosis/Chief Complaint Date of Admission Nov 09, 2022 at 16:48 Date of Discharge 11/10/2022 Admission Diagnosis Admission Diagnosis Altered Mental Status Post Ictal Seizure Disorder Dementia Discharge Diagnosis See Above Chief Complaint/HPI Chief Complaint/HPI 77 yo M that presented to ER from facility with altered mental status. This AM patient is at baseline. He states that he has been having increase in his number of seizures. States that he has been taking his medications and denies missing any doses. Denies any new pain, Fever or chills Discharge Summary-Simple/Stand Discharge Physical Examination Allergies: Coded Allergies: No Known Drug Allergies (Verified , 05/30/08) Vitals & I&Os Vital Sign - Last 12Hours Date Time Temp Pulse Resp B/P (MAP) Pulse Ox O2 Delivery O2 Flow Rate FiO2 11/10/22 11:28 36.8 63 18 106/60 (75) 93 Room Air 11/09/22 19:53 0.00 21 Intake and Output 11/10/22 00:00 Intake Total 100 ml Balance 100 ml General Appearance: Alert, No Acute Distress Respiratory: Clear to Auscultation, Normal Air Movement Cardiovascular: Regular Rate, No Murmurs Abdominal: Normal Bowel Sounds, Soft, No Tenderness, No Masses Extremities: No Edema, No Tenderness/Swelling Neuro: Normal Speech Hospital Course See final discharge diagnosis. Discussion & Recommendations 77 yo M with known h/o seizure disorder that presented to ER with altered mental status and thought to be post ictal. Patient is at baseline this AM. No new complaints. Meds were reviewed. Patient to d/c back to facility today. Discharge Condition at discharge stable Instructions to patient/family Please see electronic discharge instructions given to patient. Discharge Medications Reviewed and agree with Discharge Medication list on patient's Discharge Instruction sheet RAYMOND SIM MD Nov 10, 2022 11:46
--- NOTE | 2022-11-10 11:49 | Discharge Summary ---
Discharge [facility] Reconcile Patient Problems Problems Reviewed?: Yes Discharge Medications New, Converted or Re-Newed RX: Other Continued Medications: [2 Meds For Bp] () Amlodipine Besylate (Amlodipine Besylate) 5 Mg Tablet 1 EA PO DAILY Amlodipine Besylate (Amlodipine Besylate) 10 Mg Tablet 1 EA PO DAILY Aspirin (Aspirin) 325 Mg Tablet 325 MG PO DAILY, TAB Atorvastatin Calcium (Atorvastatin Calcium) 40 Mg Tablet 1 EA PO HS Galantamine HBr (Galantamine HBr) 12 Mg Tablet 1 EA PO DAILY Hydrocodone Bit/Acetaminophen (Lortab 7.5 Mg Tablet) 1 Ea Tablet 1 EA PO Q 4 - 6 HR PRN, #20 0 Refills Levetiracetam (Keppra) 750 Mg Tablet 2 EA PO BID Memantine HCl (Memantine HCl) 10 Mg Tablet 1 EA PO BID Niacin (Niaspan) 1,000 Mg Tablet.sa Olanzapine (Olanzapine) 2.5 Mg Tablet 1 EA PO HS Olanzapine (Olanzapine) 5 Mg Tablet 1 EA PO DAILY Pantoprazole Sodium (Pantoprazole Sodium) 40 Mg Tablet.dr 1 EA PO DAILY Sertraline HCl (Sertraline HCl) 50 Mg Tablet 1 EA PO DAILY Tamsulosin HCl (Flomax) 0.4 Mg Cap 1 EA PO HS Discontinued Medications: Valacyclovir Hcl (Valtrex) 500 Mg Tablet 2 TAB PO TID for 7 Days, TAB 0 Refills Patient Instructions Goal/Follow Up Appt: D/c back to [facility], Provider will see in facility Activity & Diet Discharge Diet: No Restrictions RAYMOND SIM MD Nov 10, 2022 11:49
== END 2022-11-10 14:42 ==
LOC: EDUNIT# 15:36 → ER 15:37 → 4TH 16:48 → UNDOADMOB 16:48 → 4TH 17:30 → UNDODISOB 11-10 14:42
PROVIDERS: ADMIT Internal Medicine; ATTEND Family Medicine
DX: R41.82 Altered mental status, unspecified (principal); G40.909 Epilepsy, unspecified, not intractable, without status epilepticus; F03.90 Unspecified dementia, unspecified severity, without behavioral disturbance, psychotic disturbance, mood disturbance, and anxiety; Z79.01 Long term (current) use of anticoagulants
CPT/HCPCS: 70450; 71045; 72125; 80048; 80053; 85025 ×2; 85610; 85730; 93005; 96361; 96366; 96372; 96375; 96376; 99283; G0378; 36415

== ENCOUNTER 2023-04-08 00:40 | Emergency (ER) | payer MEDICARE ==
[~2023-04-08 00:40] MED LIST changes: +AMLO-250 PO; +AMLO-251 PO; +ASPI-808 PO; +ATOR40TA70 PO; +GALA12TA PO; +LEVE750T19 PO; +MEMA10TA57 PO; +OLAN2.5T27 PO; +OLN5T PO; +PANT40TA52 PO; +SERT-413 PO; +TMSL.4C PO
[2023-04-08 00:41] VITALS: BP 136/81
[2023-04-08] MEDS ORDERED: fentaNYL INJ 100 MCG/2 ML AMP IVP ONE (01:00)
--- NOTE | 2023-04-08 01:11 | ED Abdominal Pain ---
General Chief Complaint: - Reproductive Stated Complaint: GROIN PAIN Nursing Triage Note: PT TO RM 2 BY EMS WITH CC OF GROIN PAIN/SWELLING X 20MIN SALES RECORD CLERK. Source of Information: Patient, EMS, Shelter Records Exam Limitations: Other (Dementia) History of Present Illness Date Seen by Provider: Apr 08, 2023 Time Seen by Provider: 00:43 Initial Comments This 77-year-old gentleman with dementia presents to the emergency room via EMS from [facility] with concerns about pelvic swelling and pain. Patient appears to be in some distress upon arrival. Symptoms reportedly just developed tonight. No other symptoms such as vomiting, fever, diarrhea, etc. were described. Patient is not able to provide history himself. He does have a history of prostate cancer and BPH. Allergies and Home Medications Allergies Coded Allergies: No Known Drug Allergies (Verified , 05/30/08) Patient Home Medication List Home Medication List Reviewed: Yes Amlodipine Besylate (Amlodipine Besylate) 5 Mg Tablet, 1 EA PO DAILY, (Reported) Entered as Reported by: PAVITHRA HARPER on 11/09/221840 Amlodipine Besylate (Amlodipine Besylate) 10 Mg Tablet, 1 EA PO DAILY, (Reported) Entered as Reported by: PAVITHRA HARPER on 11/09/221840 Aspirin (Aspirin) 325 Mg Tablet, 325 MG PO DAILY, (Reported) Entered as Reported by: PAVITHRA HARPER on 11/09/221841 Atorvastatin Calcium (Atorvastatin Calcium) 40 Mg Tablet, 1 EA PO HS, (Reported) Entered as Reported by: PAVITHRA HARPER on 11/09/221840 Galantamine HBr (Galantamine HBr) 12 Mg Tablet, 1 EA PO DAILY, (Reported) Entered as Reported by: PAVITHRA HARPER on 11/09/221840 Hydrocodone Bit/Acetaminophen (Lortab 7.5 Mg Tablet) 1 Ea Tablet, 1 EA PO Q 4 - 6 HR PRN Prescribed by: BABAK JOHN MD on 02/23/1015 Levetiracetam (Keppra) 750 Mg Tablet, 2 EA PO BID, (Reported) Entered as Reported by: PAVITHRA HARPER on 11/09/221840 Memantine HCl (Memantine HCl) 10 Mg Tablet, 1 EA PO BID, (Reported) Entered as Reported by: PAVITHRA HARPER on 11/09/221840 Niacin (Niaspan) 1,000 Mg Tablet.sa, (Reported) Entered as Reported by: VERO PHILIPPE on 02/23/10 0850 Olanzapine (Olanzapine) 2.5 Mg Tablet, 1 EA PO HS, (Reported) Entered as Reported by: PAVITHRA HARPER on 11/09/221840 Olanzapine (Olanzapine) 5 Mg Tablet, 1 EA PO DAILY, (Reported) Entered as Reported by: PAVITHRA HARPER on 11/09/221840 Pantoprazole Sodium (Pantoprazole Sodium) 40 Mg Tablet.dr, 1 EA PO DAILY, (Reported) Entered as Reported by: PAVITHRA HARPER on 11/09/221840 Sertraline HCl (Sertraline HCl) 50 Mg Tablet, 1 EA PO DAILY, (Reported) Entered as Reported by: PAVITHRA HARPER on 11/09/221840 Tamsulosin HCl (Flomax) 0.4 Mg Cap, 1 EA PO HS, (Reported) Entered as Reported by: PAVITHRA HARPER on 11/09/221840 [2 Meds For Bp] , (Reported) Entered as Reported by: VERO PHILIPPE on 02/23/10 0850 Review of Systems Review of Systems Constitutional: no symptoms reported EENTM: No Symptoms Reported Respiratory: No Symptoms Reported Genitourinary: See HPI Musculoskeletal: no symptoms reported Skin: no symptoms reported Psychiatric/Neurological: No Symptoms Reported Endocrine: No Symptoms Reported Hematologic/Lymphatic: No Symptoms Reported Past [place] Hx Immunizations Up To Date First/Initial COVID19 Vaccinat: 12/16 Second COVID19 Vaccination Rodney: 01/16 Third COVID19 Vaccination Date: 12/16 Past Medical History Surgery/Hospitalization HX: PATIENT HAS BROKEN TEETH Surgeries: Yes Respiratory: No Cardiac: Yes Hypertension, Peripheral Vascular (AAA) Neurological: Yes Dementia, Seizure Disorder Genitourinary: Yes Prostate Problems (BPH and prostate cancer), Renal Failure (Chronic kidney disease) Gastrointestinal: No Musculoskeletal: No Endocrine: No HEENT: No Cancer: Yes Prostate Physical Exam Vital Signs Vital Signs - First Documented 04/08/23 00:41 Pulse 71 Resp 18 B/P (MAP) 136/81 (99) Pulse Ox 94 O2 Delivery Room Air Capillary Refill : Less Than 3 Seconds Height/Weight/BMI Height: '" Weight: lbs. oz. kg; 23.51 BMI Method: General Appearance: WD/WN, mild distress HEENT: PERRL/EOMI, normal ENT inspection, pharynx normal Neck: normal inspection Respiratory: lungs clear, normal breath sounds, no respiratory distress Cardiovascular: regular rate, rhythm, no edema, no murmur Gastrointestinal: normal bowel sounds, soft; No distended; tenderness, hernia (On initial palpation there appeared to be a right lower quadrant abdominal wall hernia that was soft and easily reducible) Extremities: normal inspection, no pedal edema Neurologic/Psychiatric: alert, other (Dementia) Skin: normal color, warm/dry Progress/Results/Core Measures Results/Orders Lab Results Laboratory Tests Test 04/08/23 01:02 04/08/23 01:59 Range/Units White Blood Count 8.2 4.3-11.0 10^3/uL Red Blood Count 4.22 L 4.30-5.52 10^6/uL Hemoglobin 13.7 13.3-17.7 g/dL Hematocrit 40 40-54 % Mean Corpuscular Volume 96 80-99 fL Mean Corpuscular Hemoglobin 33 25-34 pg Mean Corpuscular Hemoglobin Concent 34 32-36 g/dL Red Cell Distribution Width 14.6 H 10.0-14.5 % Platelet Count 303 130-400 10^3/uL Mean Platelet Volume 10.5 9.0-12.2 fL Immature Granulocyte % (Auto) 0 % Neutrophils (%) (Auto) 59 42-75 % Lymphocytes (%) (Auto) 28 12-44 % Monocytes (%) (Auto) 9 0-12 % Eosinophils (%) (Auto) 4 0-10 % Basophils (%) (Auto) 0 0-10 % Neutrophils # (Auto) 4.8 1.8-7.8 10^3/uL Lymphocytes # (Auto) 2.3 1.0-4.0 10^3/uL Monocytes # (Auto) 0.7 0.0-1.0 10^3/uL Eosinophils # (Auto) 0.3 0.0-0.3 10^3/uL Basophils # (Auto) 0.0 0.0-0.1 10^3/uL Immature Granulocyte # (Auto) 0.0 0.0-0.1 10^3/uL Sodium Level 141 135-145 MMOL/L Potassium Level 4.1 3.6-5.0 MMOL/L Chloride Level 107 98-107 MMOL/L Carbon Dioxide Level 23 21-32 MMOL/L Anion Gap 11 5-14 MMOL/L Blood Urea Nitrogen 21 H 7-18 MG/DL Creatinine 1.02 0.60-1.30 MG/DL Estimat Glomerular Filtration Rate 75 BUN/Creatinine Ratio 21 Glucose Level 129 H 70-105 MG/DL Calcium Level 9.2 8.5-10.1 MG/DL Corrected Calcium 9.3 8.5-10.1 MG/DL Total Bilirubin 0.6 0.1-1.0 MG/DL Aspartate Amino Transf (AST/SGOT) 19 5-34 U/L Alanine Aminotransferase (ALT/SGPT) 12 0-55 U/L Alkaline Phosphatase 85 40-136 U/L C-Reactive Protein High Sensitivity 0.09 0.00-0.50 MG/DL Total Protein 6.7 6.4-8.2 GM/DL Albumin 3.9 3.2-4.5 GM/DL Urine Color YELLOW Urine Clarity CLEAR Urine pH 6.5 5-9 Urine Specific [place] 1.020 1.016-1.022 Urine Protein NEGATIVE NEGATIVE Urine Glucose (UA) NEGATIVE NEGATIVE Urine Ketones NEGATIVE NEGATIVE Urine Nitrite NEGATIVE NEGATIVE Urine Bilirubin NEGATIVE NEGATIVE Urine Urobilinogen 4.0 < = 1.0 MG/DL Urine Leukocyte Esterase NEGATIVE NEGATIVE Urine RBC (Auto) NEGATIVE NEGATIVE Urine RBC RARE /HPF Urine WBC NONE /HPF Urine Crystals NONE /LPF Urine Bacteria NEGATIVE /HPF Urine Casts PRESENT /LPF Urine Hyaline Casts RARE /LPF Urine Mucus SMALL H /LPF Urine Culture Indicated NO My Orders Orders - VIRGINIE ROLLINS MD Cbc With Automated Diff (04/08/23 00:47) Comprehensive Metabolic Panel (04/08/23 00:47) Hs C Reactive Protein (04/08/23 00:47) Ua Culture If Indicated (04/08/23 00:47) Ed Iv/Invasive Line Start (04/08/23 00:47) Bladder Scan (04/08/23 00:47) Fentanyl Inj (Sublimaze Injection) (04/08/23 01:00) Ct Abdomen/Pelvis W (04/08/23 01:57) Gilbert Cath (04/08/23 02:05) Iohexol Injection (Omnipaque 350 Mg/Ml 1 (04/08/23 02:45) Received Contrast (Hold Metformin- Contr (04/08/23 02:45) Ns (Ivpb) (Sodium Chloride 0.9% Ivpb Bag (04/08/23 02:45) Medications Given in ED Current Medications Medications Dose Ordered Sig/Ramos Route Start Time Stop Time Status Last Admin Dose Admin Fentanyl Citrate 50 mcg ONCE ONCE IVP 04/08/23 01:00 04/08/23 01:01 DC 04/08/23 01:04 50 MCG Iohexol 100 ml ONCE ONCE IV 04/08/23 02:45 04/08/23 03:07 DC 04/08/23 03:25 80 ML Sodium Chloride 100 ml ONCE ONCE IV 04/08/23 02:45 04/08/23 03:07 DC 04/08/23 03:25 80 ML Vital Signs/I&O 04/08/23 00:41 Pulse 71 Resp 18 B/P (MAP) 136/81 (99) Pulse Ox 94 O2 Delivery Room Air Blood Pressure Mean: 99 Progress Progress Note #1: Time: 01:00 Progress Note Patient was immediately examined and evaluated. Report was received from EMS. jail record was reviewed. During my initial assessment, a fullness was palpated in the right lower pelvis. This appeared to be an inguinal hernia that easily reduced. Labs are pending. CT is intended after review of labs. Progress Note #2: Time: 03:30 Progress Note CBC, CMP, CRP, and urinalysis were all reviewed and interpreted by me. They were unremarkable. Patient remained comfortable after receiving fentanyl. He did have some mild hypoxia after fentanyl which was treated with nasal cannula oxygen. Patient's hernia did not return during the course of his ER stay. Upon reevaluation he was found to be sitting up in his bed pulling on the Gilbert catheter. Bladder scan had been performed and demonstrated less than 200 mL of urine in the bladder. Gilbert catheter was placed to obtain urine specimen and ensure bladder drainage. Nursing staff reported approximately 300 mL of urine w as yielded on catheter placement. Due to patient's disruption and manipulation of the catheter in his demented state, it was determined we could not safely leave the catheter in as he was likely to cause trauma by manipulating the catheter. Catheter was removed. I suspect patient's pain was caused by the hernia that was reduced and or urinary retention. Discharge instructions i ncluded information regarding monitoring for these conditions. CT scan was viewed by me. There were no major acute abnormalities by my interpretation. There was question of gallstone presence, but this did not correlate with the location of patient's pain. Radiologist's [facility] report also revealed no emergent findings. On close evaluation of the region of the palpable hernia, there does appear to be an invagination around the right inguinal canal that could represent the hernia. Patient remained in stable condition without significant pain. He is being discharged to the group home. Diagnostic Imaging Diagonstic Imaging: CT Plain Films/CT/US/NM/MRI: abdomen, pelvis Comments NAME: [facility] REC#: [id number] PT STATUS: REG ER : 1945 PHYSICIAN: VIRGINIE ROLLINS MD ADMIT DATE: 04/08/23/ER Draft Date of Exam:04/08/23 CT ABDOMEN/PELVIS W Clinical indication: Patient with groin pain and swelling. EXAM: Axial CT scan of the abdomen and pelvis performed with 80 mL of Omnipaque 350 IV contrast. Sagittal and coronal reformatted images are created. Auto Exposure Controls were utilized during the CT exam to meet ALARA standards for radiation dose reduction. Comparison: CT scan of the abdomen with and without contrast dated 04/11/2022. FINDINGS: There is mild atelectasis involving both lung bases. There is lower lumbar spine facet arthropathy. There are small degenerative spurs involving the visualized lower thoracic spine and lumbar spine. There is appearance of subtle heterogeneous material within the nondistended gallbladder which may represent stones or sludge. Otherwise, the liver, spleen, pancreas, gallbladder, and adrenal glands are unremarkable. A renal cyst is again noted which measures roughly 5.8 cm in greatest axial dimension. There is no hydronephrosis or solid renal mass seen. Gilbert catheter is within the bladder and bladder is decompressed. There is diffuse bladder wall thickening which is nonspecific. Prostate gland is enlarged with the appearance of exophytic protrusion into the base of bladder. Prostate gland measures 6.5 cm in transverse dimensions. There is no intra-abdominal free air or free fluid. There is a large amounts of stool seen throughout the colon from cecum to the rectum which is best seen on lung windows. There is no evidence of intestinal obstruction. There is no lymphadenopathy. Stomach is moderately fluid and ingested debris filled otherwise unremarkable. The appendix is unremarkable. Extra abdominal and extrapelvic soft tissue structures are unremarkable. IMPRESSION: 1: There is large amount of stool throughout the colon which may be seen with constipation. There is no evidence of intestinal obstruction. 2: The remainder of the abdomen and pelvis shows no acute abnormality. 3: There is heterogeneous appearing material within the gallbladder which may represent stones or sludge. 4: Prostate gland is enlarged. 5: There is Gilbert catheter within the bladder. There is diffuse bladder wall thickening which is nonspecific. Sequela bladder outlet obstruction may be considered. Cystitis should be excluded if clinically suspected. I agree with [facility] report. Dictated on workstation # [id number] Dict: 04/08/23607 Trans: 04/08/23615 [id number] Interpreted by: LIU WILSON MD Departure Impression Primary Impression: Abdominal wall hernia Additional Impressions: Urinary retention Dementia Qualified Codes: F03.90 - Unspecified dementia, unspecified severity, without behavioral disturbance, psychotic disturbance, mood disturbance, and anxiety Disposition: 01 HOME, SELF-CARE Condition: Improved Departure-Patient Inst. Decision time for Depature: 03:41 Referrals: NO,LOCAL PHYSICIAN (PCP/Family) Primary Care Physician Patient Instructions: Abdominal wall hernias, Urinary Retention Add. Discharge Instructions: There was an apparent hernia in the right lower abdominal wall that was reduced in the emergency room upon patient arrival. It remained reduced and there were no complications seen on the CT scan. Please monitor for recurrence of the hernia. If hernia returns, gentle pressure may be applied to the hernia to reduce it. If hernia becomes painful, hard, or cannot be reduced, please return to care. There is also concern for possible gallstones on the CT scan. Tu could be referred for ultrasound or to a general surgeon for further evaluation if desired. There was some urinary retention noted when Gilbert catheter was placed. Please monitor for possible urinary retention and continue Flomax. Discuss further with his primary care provider. Gilbert catheter was not left in place as patient was manipulating the catheter and does not have the cognitive capacity currently to follow instructions to leave the catheter alone. This creates a risk for possible self trauma should the patient pull on the catheter. Therefore, he will need close monitoring for possible urinary retention and bladder scan should be performed as needed for evaluation of retention. There is a significant amount of stool and gas within the intestines on CT scan. If constipation is a concern when observing bowel habits, consider using MiraLAX or another gentle laxative. Encouraging good bowel movements will help reduce risk of hernia recurring. All discharge instructions reviewed with patient and/or family. Voiced understanding. Copy Copies To 1: DENNY PROCTOR JOSHUA T MD Apr 08, 2023 01:11
[2023-04-08 01:12] LABS: BASOPHILS % (AUTO) 0 % (0-10); EOSINOPHILS # (AUTO) 0.3 10^3/uL (0.0-0.3); EOSINOPHILS % (AUTO) 4 % (0-10); HEMATOCRIT 40 % (40-54); HEMOGLOBIN 13.7 g/dL (13.3-17.7); LYMPHOCYTES # (AUTO) 2.3 10^3/uL (1.0-4.0); LYMPHOCYTES % (AUTO) 28 % (12-44); MEAN CORPUSCULAR HEMOGLOBIN 33 pg (25-34); MEAN CORPUSCULAR HGB CONC 34 g/dL (32-36); MEAN CORPUSCULAR VOLUME 96 fL (80-99); MEAN PLATELET VOLUME 10.5 fL (9.0-12.2); MONOCYTES # (AUTO) 0.7 10^3/uL (0.0-1.0); MONOCYTES % (AUTO) 9 % (0-12); NEUTROPHILS # (AUTO) 4.8 10^3/uL (1.8-7.8); NEUTROPHILS % (AUTO) 59 % (42-75); PLATELET COUNT 303 10^3/uL (130-400); WHITE BLOOD COUNT 8.2 10^3/uL (4.3-11.0)
[2023-04-08 01:40] LABS: ALBUMIN 3.9 GM/DL (3.2-4.5); POTASSIUM 4.1 MMOL/L (3.6-5.0)
[2023-04-08 01:42] LABS: CALCIUM 9.2 MG/DL (8.5-10.1)
[2023-04-08 01:43] LABS: TOTAL PROTEIN 6.7 GM/DL (6.4-8.2)
[2023-04-08 01:45] LABS: BILIRUBIN,TOTAL 0.6 MG/DL (0.1-1.0)
[2023-04-08 01:47] LABS: CREATININE SERUM 1.02 MG/DL (0.60-1.30)
[2023-04-08 02:17] LABS: BILIRUBIN,URINE NEGATIVE (NEGATIVE); CLARITY,URINE CLEAR; COLOR,URINE YELLOW; GLUCOSE, URINE (UA) NEGATIVE (NEGATIVE); KETONES,URINE NEGATIVE (NEGATIVE); LEUKOCYTE ESTERASE ,URINE NEGATIVE (NEGATIVE); NITRITE,URINE NEGATIVE (NEGATIVE); PH,URINE 6.5 (5-9); PROTEIN,URINE NEGATIVE (NEGATIVE)
[2023-04-08 02:35] LABS: BACTERIA,URINE NEGATIVE /HPF; HYALINE CASTS, URINE RARE /LPF; RBC,URINE RARE /HPF
[2023-04-08] MEDS ORDERED: NS 100 ML (IVPB) BAG IV ONE (02:45)
[2023-04-08] MEDS ORDERED: HOLD METFORMIN - RECEIVED CONTRAST 20 ML VIAL IV SCH (02:45)
[2023-04-08] MEDS ORDERED: IOHEXOL 350 MG/ML 100 ML (OMNIPAQUE 350) VIAL IV ONE (02:45)
--- NOTE | 2023-04-08 06:17 | Diagnostic Imaging Report ---
Clinical indication: Patient with groin pain and swelling. EXAM: Axial CT scan of the abdomen and pelvis performed with 80 mL of Omnipaque 350 IV contrast. Sagittal and coronal reformatted images are created. Auto Exposure Controls were utilized during the CT exam to meet ALARA standards for radiation dose reduction. Comparison: CT scan of the abdomen with and without contrast dated 04/11/2022. FINDINGS: There is mild atelectasis involving both lung bases. There is lower lumbar spine facet arthropathy. There are small degenerative spurs involving the visualized lower thoracic spine and lumbar spine. There is appearance of subtle heterogeneous material within the nondistended gallbladder which may represent stones or sludge. Otherwise, the liver, spleen, pancreas, gallbladder, and adrenal glands are unremarkable. A renal cyst is again noted which measures roughly 5.8 cm in greatest axial dimension. There is no hydronephrosis or solid renal mass seen. Gilbert catheter is within the bladder and bladder is decompressed. There is diffuse bladder wall thickening which is nonspecific. Prostate gland is enlarged with the appearance of exophytic protrusion into the base of bladder. Prostate gland measures 6.5 cm in transverse dimensions. There is no intra-abdominal free air or free fluid. There is a large amounts of stool seen throughout the colon from cecum to the rectum which is best seen on lung windows. There is no evidence of intestinal obstruction. There is no lymphadenopathy. Stomach is moderately fluid and ingested debris filled otherwise unremarkable. The appendix is unremarkable. Extra abdominal and extrapelvic soft tissue structures are unremarkable. IMPRESSION: 1: There is large amount of stool throughout the colon which may be seen with constipation. There is no evidence of intestinal obstruction. 2: The remainder of the abdomen and pelvis shows no acute abnormality. 3: There is heterogeneous appearing material within the gallbladder which may represent stones or sludge. 4: Prostate gland is enlarged. 5: There is Gilbert catheter within the bladder. There is diffuse bladder wall thickening which is nonspecific. Sequela bladder outlet obstruction may be considered. Cystitis should be excluded if clinically suspected. I agree with [facility] report. Dictated by: Dictated on workstation # [id number]
== END 2023-04-08 06:40 | disposition home or self-care (01) ==
LOC: EDUNIT# 00:40 → ER 00:41
DX: K43.9 Ventral hernia without obstruction or gangrene (principal); N40.1 Benign prostatic hyperplasia with lower urinary tract symptoms; R33.8 Other retention of urine; F03.90 Unspecified dementia, unspecified severity, without behavioral disturbance, psychotic disturbance, mood disturbance, and anxiety
CPT/HCPCS: 36415; 51702; 74177; 80053; 81000; 85025; 86141